=== PATIENT | female | born 1975 | race Caucasian/White ===

== ENCOUNTER 2016-06-20 10:34 | Outpatient (CLI) | payer OTHER ==
[2014-01-27 20:04] VITALS: BP 151/66
== END 2016-06-20 10:35 ==
LOC: LABRHC 10:34
PROVIDERS: ATTEND Family Medicine
DX: R07.0 Pain in throat (principal)
CPT/HCPCS: 87070

== ENCOUNTER → 2017-01-23 | Outpatient (CLI) | payer OTHER ==
[2014-01-27 20:04] VITALS: BP 151/66
--- NOTE | 2017-01-23 18:54 | Diagnostic Imaging Report ---
HUSSEIN GRAY [facility] [address] [facility].[address] [address] Report Submission Date: Jan 23, 2017 4:59:15 PM CDT Patient Study Name: DAKOTAH OLIVAREZ Date: Jan 23, 2017 4:38:46 PM CDT Modality Type: CR Gender: F Description: LOWER EXTREMITY : 77 Institution: [facility] Physician: HUSSEIN GRAY Examination: Plain film calcaneus History: heel discomfort Findings: 2 views of the calcaneus demonstrates normal cortical margins. 9 mm posterior calcaneal spur. No soft tissue irregularity. Impression: Large posterior calcaneal spur. No other acute osseous process. If suspect plantar fasciitis or Achilles tendon abnormality, consider obtaining MRI. Electronically signed on Jan 23, 2017 4:59:15 PM CDT by: Ian MORALES
== END ==
LOC: RAD 16:21
PROVIDERS: ATTEND Physician Assistant
DX: M79.671 Pain in right foot (principal)
CPT/HCPCS: 73650

== ENCOUNTER 2017-01-24 11:21 | Outpatient (CLI) | payer OTHER ==
[2014-01-27 20:04] VITALS: BP 151/66
[2017-01-24 11:36] LABS: BASOPHILS % 0.5 (0.0-1.5); EOSINOPHILS % 1.6 % (0.0-6.8); MEAN CORPUSCULAR HEMOGLOBIN 28.5 pg (28.0-34.0); MEAN CORPUSCULAR VOLUME 87.1 fl (80.0-100.0); MONOCYTES % 4.2 % (0.0-11.0); NEUTROPHILS # 7.4 # k/uL (1.4-7.7)
[2017-01-24 12:00] LABS: eGFR (African) > 60; eGFR (Non-African) > 60
== END 2017-01-24 11:30 ==
LOC: LAB 11:21
PROVIDERS: ATTEND Physician Assistant
DX: E78.2 Mixed hyperlipidemia (principal); Z86.73 Personal history of transient ischemic attack (TIA), and cerebral infarction without residual deficits; R53.83 Other fatigue; M25.50 Pain in unspecified joint
CPT/HCPCS: 36415; 80053; 80061; 85025; 85651; 86038; 86431

== ENCOUNTER 2017-07-20 10:11 | Emergency (ER) | payer OTHER ==
[2017-07-20 10:30] VITALS: BP 150/89
--- NOTE | 2017-07-20 11:01 | ED Physician Documentation ---
Upper Extremity Injury - HPI Stated Complaint: L elbow pain Chief Complaint: Upper Extremity Injury Onset: yesterday Severity: moderate Duration: worse Context: fall Further Comments: yes (42 year old male patient presents with complaint of left elbow pain, reports falling on ice yesterday and hitting left elbow. Rates pain 9/10, worse with extension. reports frequent arthritis pain in left elbow. ) - ROS CONST: no problems CVS/RESP: none NEURO: none MS/SKIN/LYMPH: none GI/: denies: nausea, vomiting - PAST HX Past History: Rt handed, other (anxiety, CVA, depression, HLD) Allergies/Adverse Reactions: Allergies Allergy/AdvReac Type Severity Reaction Status Date / Time Iodinated Contrast Media - Allergy Verified 07/20/17 10:34 IV Dye meperidine HCl [From Demerol] Allergy Verified 07/20/17 10:34 promethazine HCl Allergy Verified 07/20/17 10:34 [From Phenergan] propoxyphene napsylate Allergy Verified 01/27/14 18:59 [From Darvocet-N] Home Medications: Ambulatory Orders Medication Instructions Recorded Aspirin [Adult Low Dose Aspirin EC] 81 mg PO DAILY 07/20/17 Meclizine HCl [Motion-Time] 25 mg PO TID PRN 07/20/17 - SOCIAL HX Smoking History: non-smoker - FAMILY HX Family History: denies: none - VITAL SIGNS Vital Signs: Vital Signs Temp Pulse Resp BP Pulse Ox 98.1 F 71 18 150/89 99 07/20/17 11:09 07/20/17 11:09 07/20/17 11:09 07/20/17 11:09 07/20/17 11:09 Progress - Progress Progress: Patient refused pain injection, rates pain 9/10, no crying, grimaces with flexion ED Results Lab/Radiology - Radiology Radiology Impressions: Left elbow, 3 views History: Fall, pain Findings: The osseous, joint and soft tissue structures are normal. Impression: Normal. Electronically signed on Jul 20, 2017 11:00:06 AM EMAIL CAMPAIGN MANAGER by: Guicho Schumacher - Orders Orders: ED Orders Category Date Time Status ELBOW 3 VIEWS [RAD] Stat Exams 07/20/17 Completed Upper Extremity Injury Physic - Physical Exam General Appearance: mild distress Hand: normal inspection, non-tender, no evidence of injury, normal ROM Wrist: normal inspection, non-tender, no evidence of injury, normal ROM Elbow/Forearm: normal inspection, no evidence of injury, normal ROM, pain (with flexion and extension), soft tissue tenderness Shoulder: normal inspection, non-tender, no evidence of injury, normal ROM Neuro/Vascular/Tendon: no vascular compromise, motor nml, sensation nml, ROM nml Skin: warm,dry Resp/CVS: chest non-tender, breath sounds nml, heart sounds nml, no resp. distress, lungs clear, reg. rate & rhythm Abdomen: non-tender, pelvis stable Discharge Clincal Impression: Contusion of left elbow Qualifiers: Encounter type: initial encounter Qualified Code(s): S50.02XA - Contusion of left elbow, initial encounter Additional Instructions: Rest Ice Ibuprofen 4 tabs every 8 hours as needed for pain and swelling. Alternate with Tylenol as needed for pain Condition: Stable Disposition: 01 HOME, SELF-CARE Decision to Admit: NO Decision Time: 11:05
--- NOTE | 2017-07-21 06:58 | Diagnostic Imaging Report ---
[place] FIERRO ([place]EL[place]) - ER [facility] [address] [facility] [address] [address] Report Submission Date: Jul 20, 2017 11:00:06 AM DIRECTOR SPEECH LANGUAGE Patient Study Name: DAKOTAH OLIVAREZ Date: Jul 20, 2017 10:35:47 AM DIRECTOR SPEECH LANGUAGE Modality Type: CR Gender: F Description: UPPER EXTREMITY : 77 Institution: [facility] Physician: [place] FIERRO) - ER Left elbow, 3 views History: Fall, pain Findings: The osseous, joint and soft tissue structures are normal. Impression: Normal. Electronically signed on Jul 20, 2017 11:00:06 AM DIRECTOR SPEECH LANGUAGE by: Guicho MORALES
== END 2017-07-20 11:09 | disposition home or self-care (01) ==
LOC: ED 10:11
DX: S50.02XA Contusion of left elbow, initial encounter (principal); W00.0XXA Fall on same level due to ice and snow, initial encounter; Y93.9 Activity, unspecified; Y92.9 Unspecified place or not applicable; Y99.9 Unspecified external cause status
CPT/HCPCS: 73080; 99282; 99283

== ENCOUNTER 2017-12-14 17:56 | Emergency (ER) | payer OTHER ==
--- NOTE | 2017-12-14 18:08 | ED Physician Documentation ---
General Adult - HISTORIAN Historian: patient - HPI Stated Complaint: head trauma Chief Complaint: General Adult Onset: minutes Timing: still present Severity: moderate Further Comments: yes (Pt is a 42 yo female with a forhead injury. Pt was doing yard work and turned and walked into the stump of a cut-off branch of a tree. Pt did not lose consciousness. She has no neck pain. She felt a little dazed after the incident.) - ROS CONST: no problems EYES/ENT: none CVS/RESP: none GI/: none MS/SKIN/LYMPH: other (forehead abrasion/laceration) - PAST HX Past History: other (CVA, HLD) Allergies/Adverse Reactions: Allergies Allergy/AdvReac Type Severity Reaction Status Date / Time Iodinated Contrast- Oral and Allergy Verified 12/14/17 18:07 IV Dye [Iodinated Contrast Media - IV Dye] meperidine HCl [From Demerol] Allergy Verified 12/14/17 18:07 promethazine HCl Allergy Verified 12/14/17 18:07 [From Phenergan] propoxyphene napsylate Allergy Verified 12/14/17 18:07 [From Darvocet-N] Home Medications: Ambulatory Orders Medication Instructions Recorded Aspirin [Adult Low Dose Aspirin EC] 81 mg PO DAILY 07/20/17 - SOCIAL HX Smoking History: non-smoker - FAMILY HX Family History: No - VITAL SIGNS Vital Signs: Vital Signs Temp Pulse Resp BP Pulse Ox 150/89 07/20/17 11:09 - REVIEWED ASSESSMENTS Nursing Assessment Reviewed: Yes Vitals Reviewed: Yes Progress - Progress Progress: Forehead abrasion cleansed with Hybiclens and steri-strips applied to minor laceration. Tdap 0.5 mlg IM General Adult Physical Exam - PHYSICAL EXAM GENERAL APPEARANCE: mild distress EENT: eye inspection normal, pharynx normal, papilledema NECK: normal inspection, supple RESPIRATORY: no resp distress, chest non-tender, breath sounds normal CVS: reg rate & rhythm, heart sounds normal BACK: normal inspection, no CVA tenderness SKIN: other (central forehead abrasion/minor superficial laceration) EXTREMITIES: non-tender, normal range of motion, no evidence of injury, no edema NEURO: oriented X3, CN's nml as tested, motor nml, sensation nml, other (DTR's wnl) Discharge Clincal Impression: minor head trauma, superficial forehead laceration/abrasion Referrals: Kendra Aguilar PA [Primary Care Provider] - Condition: Stable Disposition: 01 HOME, SELF-CARE Decision to Admit: NO Decision Time: 18:56
[2017-12-14] MEDS ORDERED: DIPH,PERTUSS(ACELL),TET VAC/PF 0.5 ML DISP.SYRIN IM ONE (18:13)
[2017-12-14 18:52] VITALS: BP 132/80
== END 2017-12-14 18:51 | disposition home or self-care (01) ==
LOC: ED 17:56
DX: S09.90XA Unspecified injury of head, initial encounter (principal); S01.01XA Laceration without foreign body of scalp, initial encounter; W22.8XXA Striking against or struck by other objects, initial encounter; Y92.9 Unspecified place or not applicable; Y93.H2 Activity, gardening and landscaping; Y99.9 Unspecified external cause status
CPT/HCPCS: 90471; 90715

== ENCOUNTER 2018-04-13 15:38 | Outpatient (CLI) | payer OTHER ==
[2018-04-13 16:24] LABS: eGFR (Non-African) > 60
== END 2018-04-13 15:40 ==
LOC: LAB 15:38
PROVIDERS: ATTEND Physician Assistant
DX: Z00.00 Encounter for general adult medical examination without abnormal findings (principal); Z13.6 Encounter for screening for cardiovascular disorders
CPT/HCPCS: 36415; 80053; 80061

== ENCOUNTER 2018-05-05 12:12 | Outpatient (CLI) | payer OTHER | END 2018-05-05 12:13 | LOC: LABRHC 12:12 | PROVIDERS: ATTEND Physician Assistant | DX: Z53.8 Procedure and treatment not carried out for other reasons (principal) ==

== ENCOUNTER 2018-05-05 16:24 | Outpatient (CLI) | payer OTHER | END 2018-05-05 16:25 | LOC: LABRHC 16:24 | PROVIDERS: ATTEND Physician Assistant | DX: Z53.8 Procedure and treatment not carried out for other reasons (principal) | CPT/HCPCS: 87086 ==

== ENCOUNTER 2018-08-04 23:34 | Emergency (ER) | payer OTHER ==
[2018-08-04 23:55] VITALS: BP 167/100
--- NOTE | 2018-08-05 00:02 | ED Physician Documentation ---
Dyspnea - HISTORIAN Historian: patient - HPI Stated Complaint: SOA, congestion for several days Chief Complaint: Dyspnea Additional Information: Patient presents to ED with a 4 day history of shortness of breath especially at night. She states she has been sick for the past 2 months with cold like symptoms and she has completed a course of antibiotics. Over the past 4 days she when she lays down to sleep she has difficulty breathing through her nose due to nasal congestion. She denies fevers. She has no history of asthma. Onset: days ago (4) Duration: continues in ED Initiating Event: upper respiratory illness Severity: mild Exacerbated By: laying flat Associated Symptoms: denies: fever, chest pain, chest discomfort, productive cough, dizziness - ROS CONST: no problems EYES/ENT: nasal congestion GI/: none NEURO/PSYCH: denies: headache MS/SKIN/LYMPH: none - PAST HX Lung Disease: none Cardiac Disease: none PE Risk Factors: none Surgeries/Procedures: none Other History: none Allergies/Adverse Reactions: Allergies Allergy/AdvReac Type Severity Reaction Status Date / Time Iodinated Contrast- Oral and Allergy Verified 08/04/18 23:52 IV Dye [Iodinated Contrast Media - IV Dye] meperidine HCl [From Demerol] Allergy Verified 08/04/18 23:52 promethazine HCl Allergy Verified 08/04/18 23:52 [From Phenergan] propoxyphene napsylate Allergy Verified 08/04/18 23:52 [From Darvocet-N] Home Medications: Ambulatory Orders Medication Instructions Recorded Aspirin [Adult Low Dose Aspirin EC] 81 mg PO DAILY 07/20/17 Amoxicillin/Potassium Clav 1 each PO BID #14 tablet 08/05/18 [Augmentin 875Mg/125Mg] predniSONE [Deltasone] 20 mg PO DAILY #3 tablet 08/05/18 - SOCIAL HX Smoking History: non-smoker Alcohol Use: none Drug Use: none - FAMILY HX Family History: none - VITAL SIGNS Vital Signs: Vital Signs Temp Pulse Resp BP Pulse Ox 97.9 F 75 14 167/100 99 08/04/18 23:34 08/04/18 23:34 08/04/18 23:34 08/04/18 23:34 08/04/18 23:34 - REVIEWED ASSESSMENTS Nursing Assessment Reviewed: Yes Vitals Reviewed: Yes ED Results Lab/Radiology - Radiology Radiology Impressions: Chest 2 v - no acute cardio/pulmonary processes. Report Submission Date: Aug 05, 2018 12:18:45 AM POURED PIPE MAKER Patient Study Name: DAKOTAH OLIVAREZ Date: Aug 04, 2018 11:59:38 PM POURED PIPE MAKER Modality Type: DX Gender: F Description: CHEST 2VIEW : 77 Institution: [facility] Physician: CORDELIA FLORES Pa and lateral chest Clinical history :short of breath Technique pa and lateral upright Findings: The lung sevilla are clear. I see no hilar or mediastinal mass. There is no pleural effusion or lesion of the bony thorax. Impression: No acute pulmonary disease Electronically signed on Aug 05, 2018 12:18:45 AM POURED PIPE MAKER by: Jurgen Chinchilla - Orders Orders: ED Orders Category Date Time Status CHEST 2VIEW [RAD] Stat Exams 08/04/18 Ordered Dyspnea Physical Exam - EXAM General Appearance: no acute distress, alert EENT: AGUSTIN, TM's nml Respiratory: no resp. distress, breath sounds nml CVS: reg. rate & rhythm, no murmur Abdomen: non-tender. No: tenderness Skin: color nml, no rash Extremities: non-tender, no edema Neuro/Psych: oriented x3, motor nml Discharge Clincal Impression: Sinusitis Qualifiers: Sinusitis location: frontal Chronicity: acute Recurrence: non-recurrent Qualified Code(s): J01.10 - Acute frontal sinusitis, unspecified Prescriptions: Amoxicillin/Potassium Clav [Augmentin 875Mg/125Mg] 1 each PO BID #14 tablet predniSONE [Deltasone] 20 mg PO DAILY #3 tablet Referrals: Kendra Aguilar PA [Primary Care Provider] - 2 Days Additional Instructions: 1. Take antibiotics until gone 2. Add antihistamine daily such as Claritin, Xyzal, Zyrtec, Josephine 3. Sinus irrigation may be helpful. 4. Cool mist vaporizer with sleep 5. Follow up with PCP within 1 week 6. Return to ER for new or worsening symptoms. Condition: Stable Disposition: 01 HOME, SELF-CARE Decision to Admit: NO Date of Decison to Admit: 08/05/18 Decision Time: 00:11
[2018-08-05] MEDS ORDERED: AMOXICILLIN/POT 875/125 1 EACH PO ONE (00:22)
[2018-08-05] MEDS ORDERED: predniSONE 20 MG TABLET PO ONE (00:22)
--- NOTE | 2018-08-05 06:01 | Diagnostic Imaging Report ---
CORDELIA FLORES [facility] [address] [facility] [address] [place], [place]. [address] Report Submission Date: Aug 05, 2018 12:18:45 AM TANK PUMPER PANELBOARD Patient Study Name: DAKOTAH OLIVAREZ Date: Aug 04, 2018 11:59:38 PM TANK PUMPER PANELBOARD Modality Type: DX Gender: F Description: CHEST 2VIEW : 77 Institution: [facility] Physician: CORDELIA FLORES Pa and lateral chest Clinical history :short of breath Technique pa and lateral upright Findings: The lung sevilla are clear. I see no hilar or mediastinal mass. There is no pleural effusion or lesion of the bony thorax. Impression: No acute pulmonary disease Electronically signed on Aug 05, 2018 12:18:45 AM TANK PUMPER PANELBOARD by: Jurgen MORALES
== END 2018-08-05 00:35 | disposition home or self-care (01) ==
LOC: SUPCPDRO 23:34 → ED 23:34
DX: J01.10 Acute frontal sinusitis, unspecified (principal)
CPT/HCPCS: 71046; 99283

== ENCOUNTER 2018-08-07 11:04 | Outpatient (CLI) | payer OTHER ==
[2018-08-07 12:34] LABS: MEAN CORPUSCULAR HEMOGLOBIN 29.2 pg (28.0-34.0)
[2018-08-07 12:35] LABS: BASOPHILS % 0.8 (0.0-1.5); EOSINOPHILS % 1.1 % (0.0-6.8); MONOCYTES % 4.4 % (0.0-11.0); NEUTROPHILS # 13.5 # k/uL (1.4-7.7)
[2018-08-07 12:55] LABS: eGFR (Non-African) > 60
--- NOTE | 2018-08-08 01:25 | Diagnostic Imaging Report ---
W[place]IAMS DEL [place]LE [facility] [address] [facility] [address] [address] Report Submission Date: Aug 07, 2018 2:42:17 PM PAINT ROLLER COVERMAKER Patient Study Name: DAKOTAH OLIVAREZ Date: Aug 07, 2018 11:20:08 AM PAINT ROLLER COVERMAKER Modality Type: US Gender: F Description: US DUPLEX CAROTID BILATERAL : 77 Institution: [facility] Physician: WILLIAMS DEL VALLE Exam: Bilateral carotid Doppler study. History:Left-sided neck swelling. Doppler interrogation and color Doppler imaging of the carotid systems bilaterally are submitted. On the right side no intimal thickening or plaque is identified. The internal carotid artery peak systolic flow velocity measurement is 76 cm/s. Internal carotid artery common carotid artery ratio is 1.0. Doppler waveforms are of normal configuration. Color Doppler imaging reveals no turbulence in flow. Flow is antegrade in the vertebral artery. On the left side no intimal thickening or plaque is identified. The internal carotid artery peak systolic flow velocity measurement is 83 cm/s. The internal carotid artery common carotid artery ratio is 0.8. Doppler waveforms are normal configuration. Color Doppler imaging reveals no turbulence in flow. Flow is antegrade in the vertebral arteries. Impression: No hemodynamically significant stenosis. Electronically signed on Aug 07, 2018 2:42:17 PM PAINT ROLLER COVERMAKER by: Shiva MORALES
== END 2018-08-07 11:25 ==
LOC: RAD 11:04
PROVIDERS: ATTEND Family Medicine
DX: R09.89 Other specified symptoms and signs involving the circulatory and respiratory systems (principal); D68.59 Other primary thrombophilia; R63.5 Abnormal weight gain; R00.2 Palpitations; Z79.899 Other long term (current) drug therapy
CPT/HCPCS: 36415; 80053; 84443; 85025; 85651; 93880

== ENCOUNTER 2018-09-14 16:41 | Outpatient (CLI) | payer OTHER ==
[2018-09-21 11:41] LABS: MEAN CORPUSCULAR HEMOGLOBIN 28.9 pg (28.0-34.0)
[2018-09-21 11:42] LABS: MONOCYTES % 8 % (0-11); SEGMENTED NEUTROPHILS % 60 % (39-79)
== END 2018-09-14 16:50 ==
LOC: LAB 16:41
PROVIDERS: ATTEND Family Medicine
DX: R70.0 Elevated erythrocyte sedimentation rate (principal)
CPT/HCPCS: 36415; 85025; 85651

== ENCOUNTER 2018-10-26 15:41 | Outpatient (CLI) | payer OTHER | END 2018-10-26 15:43 | LOC: LAB 15:41 | PROVIDERS: ATTEND Family Medicine | DX: Z86.2 Personal history of diseases of the blood and blood-forming organs and certain disorders involving the immune mechanism (principal) | CPT/HCPCS: 36415; 86038 ==

== ENCOUNTER 2019-04-05 12:35 | Outpatient (CLI) | payer OTHER ==
[2019-04-05 12:49] LABS: BASOPHILS % 0.6 % (0.0-1.5); NEUTROPHILS # 8.3 # k/uL (1.4-7.7)
== END 2019-04-05 12:40 ==
LOC: LAB 12:35
PROVIDERS: ATTEND Family Medicine
DX: D72.829 Elevated white blood cell count, unspecified (principal)
CPT/HCPCS: 36415; 85025